=== PATIENT | male | born 1940 | race Caucasian/White ===

== ENCOUNTER 2017-05-10 02:15 | Emergency (ER) | payer OTHER ==
[~2017-05-10] VITALS: Ht 182.9 cm; Wt 90.0 kg
[~2017-05-10 02:15] MED LIST: ASPIRIN325 MG PO; DYAZIDE, MA1 CAPSULE PO; FLOMAX0.4 MG PO; GLUCOSAMINE-CH1 EA28 PO; LORAZEPAM1 MG PO; SIMVASTATIN10 MG PO; TYLENOL EXTRA500 MG PO
[2017-05-10 03:00] VITALS: BP 170/105
== END 2017-05-10 03:00 | disposition home or self-care (01) ==
LOC: EME 02:15
DX: I83.892 Varicose veins of left lower extremity with other complications (principal); I10 Essential (primary) hypertension; E78.00 Pure hypercholesterolemia, unspecified; Z79.82 Long term (current) use of aspirin
CPT/HCPCS: 99281; 99284

== ENCOUNTER → 2017-07-23 | Outpatient (CLI) | payer OTHER ==
[~2017-07-23] MED LIST changes: +ASPIR 8181 M1 PO; +CRESTOR10 MG PO
== END | disposition home or self-care (01) ==
LOC: AMB 14:24
DX: Q27.9 Congenital malformation of peripheral vascular system, unspecified (principal)
CPT/HCPCS: 88305

== ENCOUNTER → 2018-01-09 | Outpatient (CLI) | payer OTHER ==
[~2018-01-09] MED LIST changes: +ASCORBIC ACID500 M3 PO; +ZINC10 MG PO
== END | disposition home or self-care (01) ==
LOC: AMB 13:30
PROC: 0HQLXZZ Repair Left Lower Leg Skin, External Approach (ICD-10-PCS; principal; 2018-01-09)
PROC: 0HBLXZZ Excision of Left Lower Leg Skin, External Approach (ICD-10-PCS; principal; 2018-01-09)
DX: L98.8 Other specified disorders of the skin and subcutaneous tissue (principal); I83.892 Varicose veins of left lower extremity with other complications

== ENCOUNTER → 2018-05-27 | Outpatient (CLI) | payer OTHER ==
[~2018-05-27] MED LIST changes: +ACCURETIC 101 TABLET PO
== END | disposition home or self-care (01) ==
LOC: AMB 14:00
DX: D18.01 Hemangioma of skin and subcutaneous tissue (principal)
CPT/HCPCS: 88305